=== PATIENT | male | born 1970 | race Caucasian/White ===

== ENCOUNTER 2017-09-12 19:16 | Emergency (ER) | payer OTHER ==
[2017-09-12 19:21] VITALS: BP 135/86; PULSE 62; RESP 16; TEMP 97.9; O2SAT 95
[2017-09-12] MEDS ORDERED: PROPARACAINE 0.5% 15 ML OPHT DROP OP ONE (19:28)
[2017-09-12] MEDS ORDERED: FLUORESCEIN SODIUM 1 MG STRIP OP ONE (19:29)
[2017-09-12] MEDS ORDERED: OFLOXACIN 0.3% SOLN PREPACK OPHT.BTL TAKEHOME ONE (20:19)
[2017-09-12] MEDS ORDERED: HYDROCOD/APAP 5/325 PREPACK#6 BTL TAKEHOME ONE (20:19)
--- NOTE | 2017-09-12 20:19 | EDPHY ---
General - History Smoking Status: Never smoked Narrative: CHIEF COMPLAINT: "Something in right eye" HISTORY OF PRESENT ILLNESS: Patient complains of pain and foreign body sensation to the right eye. This started this afternoon or evening. He denies any direct trauma to the eye, wood working or welding. He thinks that it may be his corrective contact lens. Contact has been in for has 6 or 7 days. He has had a steadily increasing foreign body sensation and pain. Worse with exposure to light but able to tolerate the light. No redness to the surrounding tissue of the face or eyelid. No difficulty with vision other than the irritation. Tetanus is up-to-date. REVIEW OF SYSTEMS: Ten systems reviewed and are negative unless otherwise noted in the HPI PCP: [facility] SPECIALISTS: Dr. Woods PAST MEDICAL HISTORY: Epilepsy PAST SURGICAL HISTORY: No recent surgeries SOCIAL HISTORY: Nonsmoker. Works and lives here locally FAMILY HISTORY: Noncontributory EXAMINATION General Appearance: Alert, no distress Head: normocephalic, atraumatic Eyes: Pupils equal and round, no pallor. No icterus. Right conjunctival injection. No pain with direct or consensual light exposure. No obvious foreign body on direct exam. EOMs intact. Painless EOMs. No hyphema. Slit-lamp exam: A right eye contact was removed with sterile swab. There was a conjunctival abrasion at the 9 o'clock position. Corneal abrasion centrally. No branching or dendritic lesions. No floaters. ENT, Mouth: Mucous membranes moist Neck: Normal inspection, supple, non-tender Respiratory: No retractions or distress Cardiovascular: Regular rate. Good signs of perfusion Neurological: A&O, nonfocal, normal gait Skin: Warm and dry, no rash. No periorbital cellulitis. Extremities: Nontender, no pedal edema Psychiatric: Mood and affect normal DIFFERENTIAL DIAGNOSES: Including but not limited to iritis, conjunctivitis, foreign body, corneal abrasion, conjunctival abrasion MDM: 7:50 p.m. Right eye irritation with possible foreign body sensation. No evidence of iritis by examination or history. Patient will need slit-lamp examination. 8:20 p.m. Corneal conjunctival abrasions with foreign body contact. Patient was unable to get the contact out but I was able to do so without difficulty. No evidence of iritis. There is a conjunctivitis as well. Treat with Ocuflox. Do not replaced the contacts. Strict ophthalmology follow-up tomorrow with [facility] or our on-call physician. ED precautions as discussed. He is comfortable this plan and discharged home stable condition SUPERVISION: Patient was independently examined, but I discussed the case with my secondary supervising physician Dr. Fregoso ([facility]) Medical Decision Making: I did not see this patient while he was in the emergency department. However his care was discussed with the PA while the patient was in the department. I agree with treatment plan and management. I am the secondary supervising physician (Ernesto Fregoso) - Objective Vital Signs: Initial Vital Signs Temperature (C) 36.6 C 09/12/17 19:18 Heart Rate 62 09/12/17 19:18 Respiratory Rate 16 09/12/17 19:18 Blood Pressure 135/86 H 09/12/17 19:18 O2 Sat (%) 95 09/12/17 19:18 O2 Delivery Mode Room Air Allergies/Adverse Reactions: Penicillins Allergy (Verified 03/03/14 18:31) Home Medications: Medication Instructions Recorded Judith 03/03/14 Medications Given: Discontinued Medications Hydrocodone Bitart/Acetaminophen ([place] 5/325mg Prepack#6) 1 btl TAKEHOME EDNOW ONE Stop: 09/12/17 20:20 Last Admin: 09/12/17 20:25 Dose: 1 btl Fluorescein Sodium (Nezmt-L-Wjngw) 1 mg OP EDNOW ONE Stop: 09/12/17 19:30 Last Admin: 09/12/17 19:33 Dose: 1 mg Ofloxacin (Ocuflox 0.3% Opht Drops Prepack) 1 btl TAKEHOME EDNOW ONE Stop: 09/12/17 20:20 Last Admin: 09/12/17 20:23 Dose: 1 btl Proparacaine HCl (Alcaine 0.5%) 2 drops OP EDNOW ONE Stop: 09/12/17 19:29 Last Admin: 09/12/17 19:33 Dose: 1 btl Departure - Departure Disposition: Home, Routine, Self-Care Clinical Impression: Corneal abrasion due to contact lens Qualifiers: Laterality: right Qualified Code(s): H18.821 - Corneal disorder due to contact lens, right eye Conjunctival abrasion Qualifiers: Encounter type: initial encounter Laterality: right Qualified Code(s): S05.01XA - Injury of conjunctiva and corneal abrasion without foreign body, right eye, initial encounter Conjunctivitis Qualifiers: Conjunctivitis type: acute Acute conjunctivitis type: unspecified Laterality: right Qualified Code(s): H10.31 - Unspecified acute conjunctivitis, right eye Condition: Good Instructions: Hydrocodone/Acetaminophen (By mouth), Ofloxacin (Into the eye), Corneal Abrasion (ED), Eye Foreign Body (ED), Conjunctivitis (ED) Additional Instructions: 1. Ocuflox medication into the affected eye every 4 hr while awake 2. Pain medication as provided as needed for the next 1-2 days 3. Contact the on-call real estate asset manager or [facility] to be seen on Saturday 4. ED precautions as discussed Referrals: Anastasia Elliott MD [Medical Doctor] - As per Instructions
== END 2017-09-12 20:15 | disposition home or self-care (01) ==
DX: S05.01XA Injury of conjunctiva and corneal abrasion without foreign body, right eye, initial encounter (principal); H18.821 Corneal disorder due to contact lens, right eye; H10.31 Unspecified acute conjunctivitis, right eye; X58.XXXA Exposure to other specified factors, initial encounter

== ENCOUNTER 2018-05-20 16:31 | Emergency (ER) | payer OTHER ==
--- NOTE | 2018-05-20 17:16 | EDPHY ---
H & P Stated Complaint: Poss FB in L eye x 2 days ?contact lens? branch scratch? Time Seen by Provider: 05/20/18 17:16 HPI/ROS: CHIEF COMPLAINT: Foreign body sensation left eye HISTORY OF PRESENT ILLNESS: The patient presents to the ED with a foreign body sensation in his left eye. The patient does wear contacts. The patient reportedly has had a persistent foreign body sensation since Saturday. He had a contact which fell apart after a minor contact with a tree branch. He was only able to remove a portion of the contact from his eye. He placed another contact. He continues to complain of ongoing pain blurry vision. REVIEW OF SYSTEMS: A comprehensive 10 point review of systems is otherwise negative aside from elements mentioned in the history of present illness. Source: Patient Exam Limitations: No limitations - Personal History Tetanus Vaccine Date: 2012 - Medical/Surgical History Hx Asthma: No Hx Chronic Respiratory Disease: No Hx Diabetes: No Hx Cardiac Disease: No Hx Renal Disease: No Hx Cirrhosis: No Hx Alcoholism: No Hx HIV/AIDS: No Hx Splenectomy or Spleen Trauma: No Other PMH: epilepsy. liver infection 04/2018 - Social History Smoking Status: Never smoked - Physical Exam Exam: Visual Acuity: noted from Nurse's notes. Pupils: equal round and reactive to light EOMI Skin: no proptosis, no periorbital erythema or swelling, no vesicles Conjunctivae: not injected, no discharge, partial contact foreign body fragment noted in removed without complication Cornea: exam with fluorescein shows a small anterior corneal abrasion Anterior chamber: normal, no hyphema or hypopyon Constitutional: Initial Vital Signs Temperature (C) 37.0 C 05/20/18 16:35 Heart Rate 82 05/20/18 16:35 Respiratory Rate 18 05/20/18 16:35 Blood Pressure 113/70 05/20/18 16:35 O2 Sat (%) 97 05/20/18 16:35 O2 Delivery Mode Room Air Allergies/Adverse Reactions: Penicillins Allergy (Verified 03/19/18 15:19) Unknown Home Medications: Medication Instructions Recorded LaMICtal 05/20/18 Ofloxacin 0.3% [Ocuflox 0.3% (RX)] 1 drops LEFTEYE 5XD #1 btl 05/20/18 Medical Decision Making ED Course/Re-evaluation: The patient presents to the ED for evaluation of left eye pain. The patient did have a partial contact in the left eye as a foreign body which was removed without complication. The patient also has a small anterior corneal abrasion. The patient will be started on Ocuflox eyedrops. He is advised to not were contacts until cleared to do so by Ophthalmology. He will wear glasses until that time. The patient is referred to our local boiler tester for a follow- up visit prior to resuming his contact lens use. Differential Diagnosis: Differential diagnosis considered includes corneal abrasion, corneal ulcer, globe rupture Departure - Departure Disposition: Home, Routine, Self-Care Clinical Impression: Foreign body of left eye Corneal abrasion Qualifiers: Encounter type: initial encounter Laterality: left Qualified Code(s): S05.02XA - Injury of conjunctiva and corneal abrasion without foreign body, left eye, initial encounter Condition: Good Instructions: Corneal Abrasion (ED) Additional Instructions: 1. Antibiotic eyedrops 1 drop to left eye 5 times a day for the next week. 2. Please schedule a follow-up appointment with the boiler tester you have been referred to for a follow-up visit recheck prior to resuming your contact lens use. 3. Please do not resume wearing contact lenses until seen in follow-up by ophthalmology. Referrals: Anastasia Elliott MD [Medical Doctor] - As per Instructions
[2018-05-20] MEDS ORDERED: FLUORESCEIN SODIUM 1 MG STRIP OP ONE (17:19)
[2018-05-20] MEDS ORDERED: PROPARACAINE 0.5% 15 ML OPHT DROP ONE (17:19)
[2018-05-20 17:53] VITALS: BP 122/68
== END 2018-05-20 17:53 | disposition home or self-care (01) ==
PROC: 08C1XZZ Extirpation of Matter from Left Eye, External Approach (ICD-10-PCS; principal; 2018-05-20)
DX: T15.02XA Foreign body in cornea, left eye, initial encounter (principal); W22.09XA Striking against other stationary object, initial encounter; Y92.9 Unspecified place or not applicable; Y93.01 Activity, walking, marching and hiking